=== PATIENT | female | born 1940 | race Caucasian/White ===

== ENCOUNTER → 2018-06-15 | Outpatient (CLI) | payer MEDICARE, OTHER ==
[~2018-06-15] MED LIST: AMLO10 PO; ASCO500 PO; ATOR20 PO; Aspir 8181 MG PO; CHOL10002 PO; DOCU100 PO; ENOX40I INJ; MULVITMIND PO; NAPR220 PO; OXYACE5T PO; POTA8 PO; UBID100 PO; [UNRECOGNIZED DRUG - OTHER] PO
== END ==
LOC: LAB 18:58 → LAB SHORT 18:58
DX: N39.0 Urinary tract infection, site not specified (principal)
CPT/HCPCS: 87086

== ENCOUNTER → 2018-09-05 | Outpatient (CLI) | payer MEDICARE, OTHER | END | disposition home or self-care (01) | LOC: LAB SHORT 14:37 → LAB 14:37 | DX: J02.9 Acute pharyngitis, unspecified (principal) | CPT/HCPCS: 87081 ==

== ENCOUNTER → 2019-01-10 | Outpatient (CLI) | payer MEDICARE, OTHER ==
[~2019-01-10] MED LIST changes: +ASPI81CH PO; +Lipitor20 MG PO; +Norvasc10 MG PO
[2019-01-13 12:07] LABS: COTININE None Detected (.); NICOTINE None Detected (.)
== END | disposition home or self-care (01) ==
LOC: LAB 10:43 → LAB SHORT 10:43
PROVIDERS: Ophthalmology
DX: F17.211 Nicotine dependence, cigarettes, in remission (principal)
CPT/HCPCS: G0480

== ENCOUNTER 2019-03-08 08:50 | Day surgery (SDC) | payer MEDICARE, OTHER ==
[~2019-03-08] VITALS: Ht 165.1 cm; Wt 59.4 kg
[2019-03-08] MEDS ORDERED: CARV6.25 PO (09:46)
--- NOTE | 2019-03-08 09:49 | NUR ---
03/08/19 0949 Dilip Horvath CALL LIGHT WITHIN REACH
== END 2019-03-08 11:12 | disposition home or self-care (01) ==
LOC: ORSCSDS 08:50
PROVIDERS: Ophthalmology
PROC: 08RK3JZ Replacement of Left Lens with Synthetic Substitute, Percutaneous Approach (ICD-10-PCS; principal; 2019-03-08 10:30)
DX: H25.12 Age-related nuclear cataract, left eye (principal); I10 Essential (primary) hypertension; J44.9 Chronic obstructive pulmonary disease, unspecified; F17.210 Nicotine dependence, cigarettes, uncomplicated; E78.5 Hyperlipidemia, unspecified; Z79.82 Long term (current) use of aspirin; Z79.899 Other long term (current) drug therapy
CPT/HCPCS: J2001; J2250; J3010; J3301; J7040; J7120; V2632

== ENCOUNTER 2019-03-22 06:39 | Day surgery (SDC) | payer MEDICARE, OTHER ==
[~2019-03-22] VITALS: Ht 160 cm; Wt 59.3 kg
[~2019-03-22 06:39] MED LIST changes: +CARV6.25 PO
[2019-03-22] MEDS ORDERED: Micro-K10 MEQ (07:02)
--- NOTE | 2019-03-22 07:08 | NUR ---
03/22/19 0708 Dilip Horvath CALL LIGHT WITHIN REACH. DR. MITCHELL AWARE OF PATIENT'S NPO STATUS. DR. MITCHELL OK TO PROCEED
--- NOTE | 2019-03-22 08:55 | NUR ---
03/22/19 0855 Mark Guthrie LATE ENTRY: PT HR INCREASES TO [address] MITCHELL NOTIFIED. PER DR MITCHELL MONITOR PT FOR 15-20 MINUTES IN STEP DOWN. PT HR CONTINUES TO STAY AT BASELINE OF 80S-90S. PT STATES SHE DOESN'T FEEL ANYTHING. PT STATES SHE WANTS TO DISCHARGE TO GO EAT. VSS. DR. MITCHELL NOTIFIED. PER DR. MITCHELL OK FOR PT TO DISCHARGE HOME.
== END 2019-03-22 08:52 | disposition home or self-care (01) ==
LOC: ORSCSDS 06:39
PROVIDERS: Ophthalmology
PROC: 08RJ3JZ Replacement of Right Lens with Synthetic Substitute, Percutaneous Approach (ICD-10-PCS; principal; 2019-03-22 08:00)
DX: H25.11 Age-related nuclear cataract, right eye (principal); I10 Essential (primary) hypertension; J44.9 Chronic obstructive pulmonary disease, unspecified; F17.210 Nicotine dependence, cigarettes, uncomplicated; Z79.899 Other long term (current) drug therapy; E78.5 Hyperlipidemia, unspecified; Z79.82 Long term (current) use of aspirin
CPT/HCPCS: J2001; J2250; J3010; J3301; J7040; V2632

== ENCOUNTER 2020-03-25 02:00 | Inpatient (IN) | payer MEDICARE, OTHER ==
[~2020-03-25] VITALS: Ht 165.1 cm; Wt 55.4 kg
[~2020-03-25 02:00] MED LIST changes: +Micro-K10 MEQ
[2020-03-25 02:57] LABS: BASOPHILS ABSOLUTE AUTO 0.04 K/mm3 (0.00-0.23); BASOPHILS PERCENT AUTO 0 % (0-2); EOSINOPHILS ABSOLUTE AUTO 0.23 K/mm3 (0.00-0.68); EOSINOPHILS PERCENT AUTO 2 % (0-6); Hemoglobin 12.7 g/dL (11.5-16.0); IMMATURE GRAN ABSOLUTE AUTO 0.06 K/mm3 (0.00-0.10); IMMATURE GRAN PERCENT AUTO 1 % (0-1); LYMPHOCYTES ABSOLUTE AUTO 0.65 K/mm3 (0.84-5.20); LYMPHOCYTES PERCENT AUTO 5 % (21-46); MONOCYTES ABSOLUTE AUTO 0.89 K/mm3 (0.16-1.47); MONOCYTES PERCENT AUTO 7 % (4-13); Mean Corpuscular HGB 31.5 pg (26.0-34.0); Mean Corpuscular HGB Conc 34.3 g/dL (31.5-36.5); Mean Corpuscular Volume 92 fL (80-100); Mean Platelet Volume 12.1 fL (9.1-12.4); NEUTROPHILS ABSOLUTE AUTO 10.39 K/mm3 (1.96-9.15); NEUTROPHILS PERCENT AUTO 85 % (41-73); Platelet Count 172 K/mm3 (150-400); RDW Coefficient Variation 12.7 % (11.7-14.2); RDW Standard Deviation 43.1 fL (35.1-46.3); Red Blood Cell Count 4.03 M/mm3 (3.80-5.20); White Blood Cell Count 12.26 K/mm3 (4.00-11.30)
[2020-03-25 03:05] LABS: Base Excess Venous 0.9 mmol/L; Bicarbonate Venous 24.8 mmol/L (24.0-30.0); PCO2 Venous 44.9 mmHg (38-42); PO2 Venous 84.5 mmHg (38-42); pH Blood Venous 7.37 (7.34-7.37)
[2020-03-25 03:18] LABS: Alanine Aminotransfer (ALT/SGP 31 U/L (12-78); Albumin/Globulin Ratio 0.8 (0.8-1.8); Alk Phos 96 U/L (50-136); Anion Gap 7 mmol/L (6-16); Aspartate Aminotrans (AST/SGOT 39 U/L (12-37); Bilirubin, Total 0.5 mg/dL (0.1-1.0); Blood Urea Nitrogen 20 mg/dL (8-24); Bun/Creatinine Ratio 27.8 (12.0-20.0); CO2, Blood 27 mmol/L (21-32); Calcium, Blood 8.7 mg/dL (8.5-10.1); Chloride, Blood 101 mmol/L (98-108); Creatinine, Blood 0.72 mg/dL (0.40-1.00); Globulin, Blood 3.7 g/dL (2.2-4.0); Glomerular Filtration Rate >60 (60-); Glucose, Blood 108 mg/dL (70-99); Potassium, Blood 3.3 mmol/L (3.5-5.5); Sodium, Blood 135 mmol/L (136-145); Total Protein, Blood 6.7 g/dL (6.4-8.2); Troponin I 0.025 ng/mL (0.000-0.040)
[2020-03-25 04:02] LABS: Adenovirus Not Detected (NOT DETECT); Bordetella pertussis Not Detected (NOT DETECT); Chlamydophila pneumoniae Not Detected (NOT DETECT); Coronavirus 229E Not Detected (NOT DETECT); Coronavirus HKU1 Not Detected (NOT DETECT); Coronavirus NL63 Not Detected (NOT DETECT); Coronavirus OC43 Not Detected (NOT DETECT); Human Metapneumovirus Not Detected (NOT DETECT); Human Rhinovirus/Enterovirus Not Detected (NOT DETECT); Influenza A/2009-H1 Not Detected (NOT DETECT); Influenza A/H1 Not Detected (NOT DETECT); Influenza A/H3 Not Detected (NOT DETECT); Influenza B Not Detected (NOT DETECT); Mycoplasma pneumoniae Not Detected (NOT DETECT); Parainfluenza Virus 1 Not Detected (NOT DETECT); Parainfluenza Virus 2 Not Detected (NOT DETECT); Parainfluenza Virus 3 Not Detected (NOT DETECT); Parainfluenza Virus 4 Not Detected (NOT DETECT); Respiratory Syncytial Virus Not Detected (NOT DETECT); SARS-Cov-2 (COVID-19), BioFire Not Detected (NOT DETECT)
--- NOTE | 2020-03-25 10:32 | NUR ---
ARRIVED TO ICU 7 AT 0833 PT ARRIVED VIA ED BED AT 0833 ON 12L NC WITH O2 SAT 89-90. KCL INFUSING AT 25ML/HR DUE TO BURNING PAIN DURING INFUSION. DURING INITIAL ASSESSMENT PT 02 SAT WENT DOWN TO 84% WHILE TALKING AND WAS ONLY ABLE TO RECOVER UP TO 86%. BIPAP THEN STARTED AT 12/9, FIO2 90% AND TITRATED DOWN TO FIO2 60% WITH PT O2 SAT >90%. PT TOLERATES BIPAP WELL AND USED BEDSIDE COMMODE ONCE ON UNIT. PT ABLE TO MAKE HER NEEDS KNOWN. SEE ADMISSION ASSESSMENT FOR FULL ASSESSMENT.
--- NOTE | 2020-03-25 10:40 | NUR ---
UPDATE GIVEN TO PT'S SON AND DAUGHTER ON PHONE.
--- NOTE | 2020-03-25 11:00 | NUR ---
DISCUSSION WITH DR HOOKER UPDATE REGARDING OXYGEN REQUIREMENTS TO DR HOOKER AT 1030.
--- NOTE | 2020-03-25 17:45 | NUR ---
HIGH FLOW NC TO BIPAP PT HAD A TRIAL ON HIGH FLOW NC AND HAD O2 SAT 90-94% FOR ABOUT AN HOUR AND THEN PROGRESSIVLY DECLINED TO O2 SAT OF 83% EVEN WHEN INCREASING NC FROM 10-12L. BIPAP BACK ON AT 1730 AND O2 SAT INCREASED TO 94% WITH PT TOLERATING WELL.
--- NOTE | 2020-03-25 19:09 | NUR ---
END OF SHIFT SUMMARY PT ALERT AND ORIENTED AND ABLE TO MAKE NEEDS KNOWN. BIPAP SETTINGS 04/17, FIO2 50% WITH PT TV [phone] AND TOLERATING WELL. PT ABLE TO TOLERATE SHORT BREAKS OFF BIPAP WITH O2 SAT >90%. SEE PREVIOUS NOTE ABOUT HIGH FLOW NC TO BIPAP. HYPOTENSIVE READING REPORTED, BP CUFF CHANGED TO A SMALLER ONE, BP IMPROVED. PT IS ABLE TO VARGAS AND SHIFT OWN WEIGHT. PT NO N/V, ABD SOFT TO PALPATE BUT PT CONT TO BE NPO. HR 80-90. SBP 800-110, MAP >65. WILL REPORT TO PM RN WHEN AVAILABLE.
--- NOTE | 2020-03-25 22:29 | NUR ---
ASSUMPTION OF CARE PT AWAKE IN BED, ORIENTED x4, O2 SATURATIONS> 90% ON BIPAP 12/9 FIO2 50%, TOLERATING WELL, PT ABLE TO CLEAR SECRETIONS. MONITOR SHOWS SINUS RHYTHM WITH HR 80'S, BP STABLE. PT REPORTS BEING HUNGRY AND WANTING TO EAT, EDUCATED ON NPO STATUS R/T DIVERTICULITIS, DIFFICULT TO ASSESS PTS UNDERSTANDING PT REMAINS PERSISTENT ON THE REQUEST FOR FOOD. PT SBA TO BEDSIDE TOILET, DENIES GI/ ISSUES AT THIS TIME. PT ABLE TO REPOSITION SELF IN BED, CALL LIGHT WITHIN REACH, PT USING APPROPRIATELY.
[2020-03-26 03:25] LABS: BASOPHILS ABSOLUTE AUTO 0.04 K/mm3 (0.00-0.23); BASOPHILS PERCENT AUTO 1 % (0-2); EOSINOPHILS ABSOLUTE AUTO 0.09 K/mm3 (0.00-0.68); EOSINOPHILS PERCENT AUTO 1 % (0-6); Hematocrit 33.9 % (33.0-51.0); Hemoglobin 11.4 g/dL (11.5-16.0); IMMATURE GRAN ABSOLUTE AUTO 0.03 K/mm3 (0.00-0.10); IMMATURE GRAN PERCENT AUTO 0 % (0-1); LYMPHOCYTES ABSOLUTE AUTO 0.66 K/mm3 (0.84-5.20); LYMPHOCYTES PERCENT AUTO 8 % (21-46); MONOCYTES ABSOLUTE AUTO 0.79 K/mm3 (0.16-1.47); MONOCYTES PERCENT AUTO 10 % (4-13); Mean Corpuscular HGB Conc 33.6 g/dL (31.5-36.5); Mean Corpuscular Volume 92 fL (80-100); Mean Platelet Volume 11.7 fL (9.1-12.4); NEUTROPHILS ABSOLUTE AUTO 6.41 K/mm3 (1.96-9.15); NEUTROPHILS PERCENT AUTO 80 % (41-73); Platelet Count 167 K/mm3 (150-400); RDW Coefficient Variation 12.8 % (11.7-14.2); RDW Standard Deviation 43.1 fL (35.1-46.3); Red Blood Cell Count 3.68 M/mm3 (3.80-5.20); White Blood Cell Count 8.02 K/mm3 (4.00-11.30)
[2020-03-26 03:43] LABS: Anion Gap 5 mmol/L (6-16); Blood Urea Nitrogen 15 mg/dL (8-24); Bun/Creatinine Ratio 20.6 (12.0-20.0); CO2, Blood 27 mmol/L (21-32); Calcium, Blood 8.4 mg/dL (8.5-10.1); Chloride, Blood 108 mmol/L (98-108); Creatinine, Blood 0.73 mg/dL (0.40-1.00); Glomerular Filtration Rate >60 (60-); Glucose, Blood 77 mg/dL (70-99); Potassium, Blood 3.5 mmol/L (3.5-5.5); Sodium, Blood 140 mmol/L (136-145)
--- NOTE | 2020-03-26 06:46 | NUR ---
SHIFT SUMMARY PT TOLERATED BIPAP UNTIL APPROX 0230, PT PLACED ON 6L PER HIFLOW NC AT THAT TIME, O2 SATURATIONS DECREASED TO 86-88%, PT CONTINUED TO REFUSE BIPAP, REPORTS 8/10 HEADACHE, PT PLACED ON 12L PER OXYMIZER. CALL PLACED TO DR SMITH, UPDATED ON PTS OXYGEN NEEDS AND HEADACHE, NEW ORDER FOR UT TYLENOL. PT DECLINED UT TYLENOL. PT CURRENLTY ON 10L PER OXYMZIER TO MAINTAIN O2 SATURATIONS> 90%. MONITOR SHOWS SINUS RHYTHM WITH HR 80'S, BP STABLE. PT AMBULATES WITH SBA TO BEDSIDE TOILET, ONE LOOSE STOOL THIS SHIFT. PT VERBALIZES UNDERSTANDING OF NPO STATUS, CONTINUES TO MAKE FREQUENT REQUESTS FOR FOOD. CALL LIGHT WITHIN REACH, PT USING APPROPRIATELY.
--- NOTE | 2020-03-26 09:34 | NUR ---
AFTER ASSISTED PT TO BSC, PT WAS NOTED TO HAVE BRB PER RECTUM WITH MEDIUM SIZED BLOOD CLOTS. ATTEMPTED TO CALL PRIMARY DR, MESSAGE LEFT TO RETURN CALL. DR MARYLOU PARDO SUR[facility] NOTIFIED AND ORDERS RECEIVED.
[2020-03-26 10:07] LABS: BASOPHILS ABSOLUTE AUTO 0.05 K/mm3 (0.00-0.23); BASOPHILS PERCENT AUTO 1 % (0-2); EOSINOPHILS ABSOLUTE AUTO 0.03 K/mm3 (0.00-0.68); EOSINOPHILS PERCENT AUTO 0 % (0-6); Hematocrit 33.4 % (33.0-51.0); Hemoglobin 11.4 g/dL (11.5-16.0); IMMATURE GRAN ABSOLUTE AUTO 0.04 K/mm3 (0.00-0.10); IMMATURE GRAN PERCENT AUTO 0 % (0-1); LYMPHOCYTES ABSOLUTE AUTO 0.67 K/mm3 (0.84-5.20); LYMPHOCYTES PERCENT AUTO 8 % (21-46); MONOCYTES ABSOLUTE AUTO 0.69 K/mm3 (0.16-1.47); MONOCYTES PERCENT AUTO 8 % (4-13); Mean Corpuscular HGB 31.4 pg (26.0-34.0); Mean Corpuscular HGB Conc 34.1 g/dL (31.5-36.5); Mean Corpuscular Volume 92 fL (80-100); Mean Platelet Volume 11.8 fL (9.1-12.4); NEUTROPHILS ABSOLUTE AUTO 7.43 K/mm3 (1.96-9.15); NEUTROPHILS PERCENT AUTO 84 % (41-73); Platelet Count 192 K/mm3 (150-400); RDW Coefficient Variation 12.9 % (11.7-14.2); RDW Standard Deviation 43.6 fL (35.1-46.3); Red Blood Cell Count 3.63 M/mm3 (3.80-5.20); White Blood Cell Count 8.91 K/mm3 (4.00-11.30)
[2020-03-26 12:01] LABS: ADENOVIRUS F 40/41 Not Detected (Not Detected); ASTROVIRUS Not Detected (Not Detected); C DIFFICILE TOXIN A/B Not Detected (Not Detected); CAMPYLOBACTER Not Detected (Not Detected); CRYPTOSPORIDIUM Not Detected (Not Detected); CYCLOSPORA CAYETANENSIS Not Detected (Not Detected); ENTAMOEBA HISTOLYTICA Not Detected (Not Detected); ENTEROAGGREGATIVE E COLI Not Detected (Not Detected); ENTEROPATHOGENIC E COLI Not Detected (Not Detected); ENTEROTOXIGENIC E COLI Not Detected (Not Detected); GIARDIA LAMBLIA Not Detected (Not Detected); NOROVIRUS GI/GII Not Detected (Not Detected); PLESIOMONAS SHIGELLOIDES Not Detected (Not Detected); ROTAVIRUS A Not Detected (Not Detected); SALMONELLA Not Detected (Not Detected); SAPOVIRUS Not Detected (Not Detected); SHIGA-TOXIN-PRODUCING E COLI Not Detected (Not Detected); SHIGELLA/ENTEROINVASIVE E COLI Not Detected (Not Detected); VIBRIO Not Detected (Not Detected); VIBRIO CHOLERAE Not Detected (Not Detected); YERSINIA ENTEROCOLITICA Not Detected (Not Detected)
[2020-03-26 18:09] LABS: BASOPHILS ABSOLUTE AUTO 0.06 K/mm3 (0.00-0.23); BASOPHILS PERCENT AUTO 1 % (0-2); EOSINOPHILS ABSOLUTE AUTO 0.03 K/mm3 (0.00-0.68); EOSINOPHILS PERCENT AUTO 0 % (0-6); Hematocrit 34.1 % (33.0-51.0); Hemoglobin 11.2 g/dL (11.5-16.0); IMMATURE GRAN ABSOLUTE AUTO 0.06 K/mm3 (0.00-0.10); IMMATURE GRAN PERCENT AUTO 1 % (0-1); LYMPHOCYTES ABSOLUTE AUTO 0.81 K/mm3 (0.84-5.20); LYMPHOCYTES PERCENT AUTO 8 % (21-46); MONOCYTES ABSOLUTE AUTO 0.79 K/mm3 (0.16-1.47); MONOCYTES PERCENT AUTO 8 % (4-13); Mean Corpuscular HGB 30.5 pg (26.0-34.0); Mean Corpuscular HGB Conc 32.8 g/dL (31.5-36.5); Mean Corpuscular Volume 93 fL (80-100); Mean Platelet Volume 11.6 fL (9.1-12.4); NEUTROPHILS ABSOLUTE AUTO 8.73 K/mm3 (1.96-9.15); NEUTROPHILS PERCENT AUTO 83 % (41-73); Platelet Count 196 K/mm3 (150-400); RDW Coefficient Variation 12.8 % (11.7-14.2); RDW Standard Deviation 43.9 fL (35.1-46.3); Red Blood Cell Count 3.67 M/mm3 (3.80-5.20); White Blood Cell Count 10.48 K/mm3 (4.00-11.30)
--- NOTE | 2020-03-26 18:39 | NUR ---
SHIFT SUMMARY PT IS ALERT AND ORIENTEDx4. PT HAS REMAINED ON 10L VIA OXYMIZER OF O2 TODAY. WITH ACTIVITY PT WILL DROP HER SPO2 AND WOULD RECOVER ONCE RESTING WITH NO TITRATION NEEDED. PT ASSISTED TO BSC FOR SMALL LOOSE DIARRHEA. PCR WAS NEGATIVE TODAY AND PT WAS REMOVED FROM ISOLATION PRECAUTIONS. PT HAD ONE EPISODE OF BRIGHT RED BLOOD PER RECTUM WITH CLOTS. GI WAS CONSULTED AND HEMORRHOIDS WERE NOTED. PT WAS STARTED ON Q8 H/H AND LABS HAVE REMAINED STABLE. NO FURTHER EPISODES OF BLOOD WAS NOTED. MONITOR HAS SHOWN PT TO BE IN SINUS RHYTHM/TACH WITH RATES 90'S-100'S. BLOOD PRESSURE SOFT AT TIMES WITH SYSTOLIC IN 90'S. PT TO TRANSFER TO PCU, REPORT WILL BE GIVEN TO ANTHONY TENORIO RN.
[2020-03-27 02:04] LABS: BASOPHILS ABSOLUTE AUTO 0.05 K/mm3 (0.00-0.23); BASOPHILS PERCENT AUTO 1 % (0-2); EOSINOPHILS ABSOLUTE AUTO 0.01 K/mm3 (0.00-0.68); EOSINOPHILS PERCENT AUTO 0 % (0-6); Hematocrit 33.8 % (33.0-51.0); Hemoglobin 11.4 g/dL (11.5-16.0); IMMATURE GRAN ABSOLUTE AUTO 0.05 K/mm3 (0.00-0.10); IMMATURE GRAN PERCENT AUTO 1 % (0-1); LYMPHOCYTES ABSOLUTE AUTO 0.63 K/mm3 (0.84-5.20); LYMPHOCYTES PERCENT AUTO 6 % (21-46); MONOCYTES PERCENT AUTO 8 % (4-13); Mean Corpuscular HGB 30.7 pg (26.0-34.0); Mean Corpuscular HGB Conc 33.7 g/dL (31.5-36.5); Mean Corpuscular Volume 91 fL (80-100); Mean Platelet Volume 11.4 fL (9.1-12.4); NEUTROPHILS ABSOLUTE AUTO 8.41 K/mm3 (1.96-9.15); NEUTROPHILS PERCENT AUTO 85 % (41-73); Platelet Count 192 K/mm3 (150-400); RDW Coefficient Variation 12.7 % (11.7-14.2); RDW Standard Deviation 42.4 fL (35.1-46.3); Red Blood Cell Count 3.71 M/mm3 (3.80-5.20); White Blood Cell Count 9.95 K/mm3 (4.00-11.30)
[2020-03-27 02:20] LABS: Anion Gap 7 mmol/L (6-16); Blood Urea Nitrogen 17 mg/dL (8-24); CO2, Blood 26 mmol/L (21-32); Calcium, Blood 8.5 mg/dL (8.5-10.1); Chloride, Blood 108 mmol/L (98-108); Creatinine, Blood 0.68 mg/dL (0.40-1.00); Glomerular Filtration Rate >60 (60-); Glucose, Blood 119 mg/dL (70-99); Potassium, Blood 3.3 mmol/L (3.5-5.5); Sodium, Blood 141 mmol/L (136-145)
--- NOTE | 2020-03-27 03:22 | NUR ---
PATIENT IS ALERT AND ORIENTED. CAME TO UNIT FROM ICU VIA WHEEL CHAIR AND TRANSFERRED FROM CHAIR TO BED INDEPENDENTLY. PATIENTS REPOSITIONS SELF IN BED INDEPENDENTLY. SHE IS A SBA TO [facility]. PATIENT REQUESTED TO WEAR HER OWN NIGHT SHIRT INSTEAD OF HOSPITAL GOWN BECAUSE SHE FELT THE GOWN WAS SUFFOCATING HER. PATIENT HAD AN EPISODE THAT APPEARED TO BE AN ANXIETY ATTACK AND HER 02 SATS DROPPED TO THE LOWER 80s. SAT PATIENT UP AT THE SIDE OF THE BED AND SHE EVENTUALLY CALMED DOWN AND 02 SATS RETURNED TO 92%. CALLED FOR ANXIETY MEDICATION, WHEN I TRIED TO GIVE IT TO THE PATIENT THE PATIENT STATED SHE NO LONGER THOUGHT SHE NEEDED IT. VITAL SIGNS STABLE, NO OTHER ACUTE CHANGES. PATIENT SLEPT MOST THE NIGHT. CALL LIGHT IS IN REACH, WILL CONTINUE TO MONITOR.
--- NOTE | 2020-03-27 07:53 | NUR ---
Pt awake, sitting up in bed, watching TV and pleasantly conversant without any voiced concerns or complaints at this time. Dr. Mullen here to see the patient, voices serious concerns about the pt's severe aortic stenosis. He is talking with the morning news producer Dr. Jeffery on the phone at this time. The pt is currently on oxygen delivery by oxymizer at 10 l/min with spo2 maintained at rest at 93%. Vital signs are stable. Lung sounds are clear anteriorly, but fine inspiratory crackles noted in the bases bilaterally. She states she is coughing up a lot of yellow sputum. NO cough noted while I was in the room assessing the patient and later with Dr. Mullen. No peripheral edema noted. Cap refill brisk, skin pink, warm and dry. Pt reports that she used the bedside commode early this morning and had a "very darK' stool which made her think that it had blood in it.
[2020-03-27 10:02] LABS: BASOPHILS ABSOLUTE AUTO 0.05 K/mm3 (0.00-0.23); BASOPHILS PERCENT AUTO 1 % (0-2); EOSINOPHILS ABSOLUTE AUTO 0.09 K/mm3 (0.00-0.68); EOSINOPHILS PERCENT AUTO 1 % (0-6); Hematocrit 33.3 % (33.0-51.0); Hemoglobin 11.5 g/dL (11.5-16.0); IMMATURE GRAN ABSOLUTE AUTO 0.05 K/mm3 (0.00-0.10); IMMATURE GRAN PERCENT AUTO 1 % (0-1); LYMPHOCYTES PERCENT AUTO 10 % (21-46); MONOCYTES PERCENT AUTO 10 % (4-13); Mean Corpuscular HGB 31.3 pg (26.0-34.0); Mean Corpuscular HGB Conc 34.5 g/dL (31.5-36.5); Mean Corpuscular Volume 91 fL (80-100); Mean Platelet Volume 11.5 fL (9.1-12.4); NEUTROPHILS ABSOLUTE AUTO 7.43 K/mm3 (1.96-9.15); NEUTROPHILS PERCENT AUTO 79 % (41-73); Platelet Count 201 K/mm3 (150-400); RDW Coefficient Variation 12.8 % (11.7-14.2); RDW Standard Deviation 42.6 fL (35.1-46.3); Red Blood Cell Count 3.67 M/mm3 (3.80-5.20); White Blood Cell Count 9.42 K/mm3 (4.00-11.30)
--- NOTE | 2020-03-27 10:11 | NUR ---
Dr Jeffery here to see the patient. EKG was ordered when it was thought that the pt had not yet had an EKG done on this admission. However, an EKG was found and shown to the solderer barrel ribs at this time. PRinted a copy for the chart at this time. The pt is discussing treatment plan with the patient at this time.
--- NOTE | 2020-03-27 12:38 | NUR ---
PT WAS GIVEN A SPOON FUL OF APPLESAUCE AT HER REQUEST TO HELP HER TO NOT TO GAG ON THE POTASSIUM LIQUID MEDICATION,
--- NOTE | 2020-03-27 15:09 | NUR ---
Dr. Jeffery here to talk to the pt's daughter Yris in the pt's room. Pt is down to 3 l/min n.c. delivery of oxygen. Occasionally requiring 5 l/min o2 delivery with activity. At rest, she at times has not been needing any oxygen at all and her spo2 is maintaining 88-90%. Right now she is lying on her right side, vital signs stable, and states that she would like to take a nap.
--- NOTE | 2020-03-27 16:19 | NUR ---
Pt's daughter Yris left the hospital about half an hour ago, asked that she be called if there was any change in the pt's condition. The best phone number to reach her at is the one on the white board in pt's room. Pt is napping at this time.
--- NOTE | 2020-03-27 18:09 | NUR ---
summary The pt has been weaned from 10 l/min Oxygen delivery via oxymizer to 3-5 l/min delivery. She has been maintaining spo2 88-92%. She is able to eat, talk on the phone, and get up to the bedside commode with tachypnea, but no severe dyspnea. She states that she has felt good today as far as her breathing is concerned. Diet was advanced to full liquid per Dr. Dial. She has been tolerating it well. She had a second bowel movement this afternoon, and told me that it was brown, not black nor red.
--- NOTE | 2020-03-27 21:15 | NUR ---
CARE ASSUMPTION / OXYGEN UPDATE PT A&O X4. VSS. MONITOR SHOWING SR-ST, HR 90's-110. SPO2 88-92% ON 3L NC, TOLERATING WELL UNTIL PT WENT TO SLEEP AND CONTINUOUS BIOX BEGAN ALARMING D/T SPO2 DESAT. ASSISTING RN IN TO RM W/ REPORT OF INCREASE IN O2 UP TO 10L OXYMIZER FOR SPO2 > 90%. PT NOW TITRATED DOWN TO 9L OXYMIZER. WILL CONTINUE TO MONITOR.
--- NOTE | 2020-03-28 05:32 | NUR ---
SHIFT SUMMARY PT CONTINUES TO BE A&O X4. VSS. MONITOR SHOWING SR-ST, HR 90's-110. SPO2 88-92% ON 3-4L OXYMIZER MAJORITY OF SHIFT. PT BRIEFLY WEARING UP TO 10L OXYMIZER THIS SHIFT WHILE SLEEPING, NOW BACK DOWN TO 4L CURRENTLY, TOLERATING WELL. OTHERWISE NO OTHER EVENTS OVER NIGHT. WILL CONTINUE TO MONITOR & PROVIDE CARE UNTIL REPORT OFF TO DAY SHIFT RN.
[2020-03-28 06:52] LABS: BASOPHILS ABSOLUTE AUTO 0.07 K/mm3 (0.00-0.23); BASOPHILS PERCENT AUTO 1 % (0-2); EOSINOPHILS ABSOLUTE AUTO 0.15 K/mm3 (0.00-0.68); EOSINOPHILS PERCENT AUTO 2 % (0-6); Hematocrit 36.7 % (33.0-51.0); Hemoglobin 12.4 g/dL (11.5-16.0); IMMATURE GRAN ABSOLUTE AUTO 0.05 K/mm3 (0.00-0.10); IMMATURE GRAN PERCENT AUTO 1 % (0-1); LYMPHOCYTES ABSOLUTE AUTO 0.73 K/mm3 (0.84-5.20); LYMPHOCYTES PERCENT AUTO 8 % (21-46); MONOCYTES ABSOLUTE AUTO 0.83 K/mm3 (0.16-1.47); MONOCYTES PERCENT AUTO 9 % (4-13); Mean Corpuscular HGB 31.1 pg (26.0-34.0); Mean Corpuscular HGB Conc 33.8 g/dL (31.5-36.5); Mean Corpuscular Volume 92 fL (80-100); Mean Platelet Volume 11.4 fL (9.1-12.4); NEUTROPHILS ABSOLUTE AUTO 7.81 K/mm3 (1.96-9.15); NEUTROPHILS PERCENT AUTO 81 % (41-73); Platelet Count 221 K/mm3 (150-400); RDW Coefficient Variation 12.9 % (11.7-14.2); RDW Standard Deviation 43.8 fL (35.1-46.3); Red Blood Cell Count 3.99 M/mm3 (3.80-5.20); White Blood Cell Count 9.64 K/mm3 (4.00-11.30)
[2020-03-28 07:10] LABS: Anion Gap 5 mmol/L (6-16); Blood Urea Nitrogen 11 mg/dL (8-24); Bun/Creatinine Ratio 17.4 (12.0-20.0); CO2, Blood 26 mmol/L (21-32); Calcium, Blood 8.4 mg/dL (8.5-10.1); Chloride, Blood 110 mmol/L (98-108); Creatinine, Blood 0.63 mg/dL (0.40-1.00); Glomerular Filtration Rate >60 (60-); Glucose, Blood 111 mg/dL (70-99); Potassium, Blood 3.6 mmol/L (3.5-5.5); Sodium, Blood 141 mmol/L (136-145)
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
[2020-03-29 04:26] LABS: BASOPHILS ABSOLUTE AUTO 0.05 K/mm3 (0.00-0.23); BASOPHILS PERCENT AUTO 1 % (0-2); EOSINOPHILS ABSOLUTE AUTO 0.21 K/mm3 (0.00-0.68); EOSINOPHILS PERCENT AUTO 2 % (0-6); Hematocrit 37.3 % (33.0-51.0); Hemoglobin 12.1 g/dL (11.5-16.0); IMMATURE GRAN ABSOLUTE AUTO 0.05 K/mm3 (0.00-0.10); IMMATURE GRAN PERCENT AUTO 1 % (0-1); LYMPHOCYTES ABSOLUTE AUTO 0.88 K/mm3 (0.84-5.20); LYMPHOCYTES PERCENT AUTO 10 % (21-46); MONOCYTES ABSOLUTE AUTO 0.82 K/mm3 (0.16-1.47); MONOCYTES PERCENT AUTO 9 % (4-13); Mean Corpuscular HGB Conc 32.4 g/dL (31.5-36.5); Mean Corpuscular Volume 93 fL (80-100); Mean Platelet Volume 11.4 fL (9.1-12.4); NEUTROPHILS ABSOLUTE AUTO 6.75 K/mm3 (1.96-9.15); NEUTROPHILS PERCENT AUTO 77 % (41-73); Platelet Count 255 K/mm3 (150-400); RDW Standard Deviation 44.4 fL (35.1-46.3); Red Blood Cell Count 4.03 M/mm3 (3.80-5.20); White Blood Cell Count 8.76 K/mm3 (4.00-11.30)
[2020-03-29 04:56] LABS: Anion Gap 5 mmol/L (6-16); Blood Urea Nitrogen 10 mg/dL (8-24); Bun/Creatinine Ratio 15.2 (12.0-20.0); CO2, Blood 28 mmol/L (21-32); Calcium, Blood 8.3 mg/dL (8.5-10.1); Chloride, Blood 108 mmol/L (98-108); Creatinine, Blood 0.66 mg/dL (0.40-1.00); Glomerular Filtration Rate >60 (60-); Glucose, Blood 98 mg/dL (70-99); Potassium, Blood 3.4 mmol/L (3.5-5.5); Sodium, Blood 141 mmol/L (136-145)
--- NOTE | 2020-03-29 07:33 | NUR ---
SHIFT SUMMARY PATIENT VERY PLEASENT AND CHEERFUL THROUGHOUT THE NIGHT. PATIENT SBA TO THE BSC. PATIENT APPEARED TO SLEEP WELL THROUGHOUT THE NIGHT. PATIENT APPEARED TO BE ABLE TO MOVE SELF ABOUT IN BED. ABX GIVEN PER ORDERS. PATIENT CURRENTLY SITTING UP AT THE EDGE OF THE BED WATCHING TV. VITAL SIGNS CHARTED. REPORT GIVEN TO ONCOMING RN.
[2020-03-29 10:06] LABS: International Normalized Ratio 1.18; Prothrombin Time Results 12.5 Sec (9.7-11.5)
[2020-03-29 13:46] LABS: Protein, Body Fluid 1.6 g/dL
--- NOTE | 2020-03-29 15:15 | NUR ---
O2 DC'D AT 1200 FOLLOWING THOROCENTESIS. O2 SAT 96% ON RA.
--- NOTE | 2020-03-29 17:39 | NUR ---
SHIFT ASSESMENT; A/A/OX4 DURING SHIFT. SBA TO BEDSIDE COMMODE NEEDED. THOROCENTESIS COMPLETE TODAY WITH 550ML REMOVED. O2 TITRATED OFF TO RA. PT EVAL AND HOME O2 EVAL BY RT. SATS REMAINED 90-95% WITH ACTIVITY. POSSIBLE DC TONIGHT OR TOMORROW PER DR. HOOKER. NO ACUTE MEDICAL CHANGES DURING SHIFT.
[2020-03-29 19:35] LABS: Albumin, Blood 2.6 g/dL (3.4-5.0)
--- NOTE | 2020-03-30 05:08 | NUR ---
SUMMARY PATIENT IS ALERT, ORIENTED, AND COOPERATIVE WITH CARE. SHE IS INDEPENDENT TO BEDSIDE COMMODE AND REPOSITIONS SELF IN BED. PATIENT SLEPT MOST THE NIGHT. 02 SATS REMAINED >90% ON RA. VSS, NO ACUTE CHANGES. CALL LIGHT IN REACH. WILL CONTINUE TO MONITOR.
[2020-03-30] MEDS ORDERED: ALBU2.5V5 INH (13:08)
[2020-03-30] MEDS ORDERED: FLUTICASONE-SA1 EA11 INH (13:10)
[2020-03-30] MEDS ORDERED: Hydrocortisone30 G4 TOP (13:12)
[2020-03-30] MEDS ORDERED: PANT40 PO (13:13)
[2020-03-30] MEDS ORDERED: AMOCLA875 PO (13:14)
--- NOTE | 2020-03-30 14:44 | NUR ---
PT WAS DISCHARGED TODAY WITH DISCHARGE ORDERS. PT'S VITALS HAS BEEN STABLE HRR SINUS 90-100'S, BP SYSTOLIC 115-120'S, SATS ABOVE 92% ON RA, AFEBRILE. HOME O2 EVAL PASSED PT DOESNT REQUIRE OXYGEN AT THIS TIME. PT TO CONTINUE ANTIBIOTICS AT HOME. PT ALSO AWARE TO CALL AND MAKE APPOINTMENT WITH [facility] IN [place] NUMBER AND INFORMATION PROVIDED DAUGHTER AT BEDSIDE UPON DISCLOSURE OF DISCHARGE MEDICATIONS AND INSTRUCTIONS. DAUGHTER PROVIDED TRANSPORTATION, ALL BELONGINGS SENT WITH PT, PT ACCOMPANIED VIA WHEELCHAIR FOR TRANSPORT.
[2020-03-31 20:07] LABS: (LD) FRACTION 1 27 % (17-32); (LD) FRACTION 2 37 % (25-40); (LD) FRACTION 3 20 % (17-27); (LD) FRACTION 4 7 % (5-13); (LD) FRACTION 5 9 % (4-20); LDH 225 IU/L (119-226)
== END 2020-03-30 14:16 | disposition home health service (06) | DRG 871 ==
LOC: ER 02:00 → ICUE 05:24 → PCU 05:24 → ER 05:52 → ERHOLD 05:52 → ICUE 03-26 18:06 → PCU 03-26 19:16
PROVIDERS: Emergency Medicine; Internal Medicine; Internal Medicine Cardiovascular Disease; Internal Medicine Critical Care Medicine; Surgery; ADMIT Family Medicine
PROC: 5A09357 Assistance with Respiratory Ventilation, Less than 24 Consecutive Hours, Continuous Positive Airway Pressure (ICD-10-PCS; principal; 2020-03-25)
PROC: 0W993ZZ Drainage of Right Pleural Cavity, Percutaneous Approach (ICD-10-PCS; 2020-03-29)
DX: A41.9 Sepsis, unspecified organism (principal); J96.01 Acute respiratory failure with hypoxia; K57.21 Diverticulitis of large intestine with perforation and abscess with bleeding; E87.1 Hypo-osmolality and hyponatremia; I50.30 Unspecified diastolic (congestive) heart failure; I01.1 Acute rheumatic endocarditis; J44.1 Chronic obstructive pulmonary disease with (acute) exacerbation; J91.8 Pleural effusion in other conditions classified elsewhere; E78.5 Hyperlipidemia, unspecified; F17.210 Nicotine dependence, cigarettes, uncomplicated; Z20.828 Contact with and (suspected) exposure to other viral communicable diseases; Z66 Do not resuscitate; E87.6 Hypokalemia; Z79.82 Long term (current) use of aspirin; I25.10 Atherosclerotic heart disease of native coronary artery without angina pectoris; R65.20 Severe sepsis without septic shock; I11.0 Hypertensive heart disease with heart failure; I08.0 Rheumatic disorders of both mitral and aortic valves
CPT/HCPCS: 0097U; 0202U; 32555; 36415; 71045; 71260; 74177; 80048; 80053; 82040; 82803; 82947; 83605; 83615; 83625; 83721; 83880; 84145; 84157; 84484; 85025; 85379; 85610; 86850; 86900; 86901; 87040; 88108; 88305; 88342; 93005; 93010; 93306; 94640; 94660; 94760; 94761; 94762; 96365-59; 96372-59; 96375-59; 97110; 97161; 99285-25; A9270; A9270-GY; C9113; J0456; J0696; J1650; J3480; J7030; J7050; Q9967; U0004